=== PATIENT | male | born 2000 | race Two or more races ===

== ENCOUNTER 2024-04-22 15:35 | Emergency (ER) | payer OTHER ==
[~2024-04-22] VITALS: Ht 175.3 cm; Wt 72.7 kg
[2024-04-22 15:35] VITALS: TEMP 98.5
[2024-04-22 16:17] VITALS: BP 116/71
[2024-04-22 17:10] VITALS: PULSE 80; RESP 16; O2SAT 97
[2024-04-22] MEDS: KETOROLAC TROMETH 60MG/2ML VIAL IM ONE (17:17)
[2024-04-22] MEDS ORDERED: IBUP-1456 PO (17:37)
[2024-04-22] MEDS ORDERED: BACL10TA PO (17:37)
== END 2024-04-22 17:44 | disposition home or self-care (01) ==
LOC: ER 15:35
DX: S46.911A Strain of unspecified muscle, fascia and tendon at shoulder and upper arm level, right arm, initial encounter (principal); S39.012A Strain of muscle, fascia and tendon of lower back, initial encounter; X50.3XXA Overexertion from repetitive movements, initial encounter; Y93.89 Activity, other specified; Y92.69 Other specified industrial and construction area as the place of occurrence of the external cause; Y99.8 Other external cause status
CPT/HCPCS: 72100; 73030; 96372; 99284; J1885